=== PATIENT | male | born 1950 | race African-American/Black ===

== ENCOUNTER 2019-06-15 09:19 | Inpatient (IN) | payer MEDICARE ==
[~2019-06-15] VITALS: Ht 190.5 cm; Wt 100.7 kg
[~2019-06-15 09:19] MED LIST: DICL75TA5 MT; METO-396 MT; NIFE30TA83 PO; SERT20OR6 PO; SPIR25TA6 MT
[2019-06-15] MEDS ORDERED: SODIUM CHLORIDE 0.9% 1,000 ML IV ONE (09:26)
[2019-06-15 09:41] LABS: BG BASE EXCESS -13.7 mmol/L (-2.0-2.0); BG DEOXYHEMOGLOBIN 2.3 % (0.0-5.0); BG HCO3 ACT 10.4 mmol/L (22.0-26.0); BG METHEMOGLOBIN 0.1 % (0.0-1.5); BG OXYGEN SATURATION 97.7 % (92.0-98.5); BG OXYHEMOGLOBIN 97.6 % (94.0-97.0); BG PCO2 18.8 mmHg (35.0-45.0); BG PH 7.361 (7.350-7.450); BG PO2 115.7 mmHg (75.0-100.0); BG SAMPLE SITE RIGHT BRACHIAL; BG TOTAL HEMOGLOBIN 6.3 g/dL (12.0-18.0); BG VENT MODE ROOM AIR
[2019-06-15 10:09] LABS: INR 2.1; PROTHROMBIN TIME 20.9 sec (9.6-11.0)
[2019-06-15 10:15] LABS: CHLORIDE 103 mEq/L (98-107)
[2019-06-15] MEDS ORDERED: NOREPINEPHRINE 4 MG in DEXT 5% WATER 250 ML IV STA (10:15)
[2019-06-15] MEDS ORDERED: MIDAZOLAM HCL 50 MG in DEXTROSE 5% WATER 40 ML IV ONE ×2 (10:30→15:15)
[2019-06-15] MEDS ORDERED: ETOMIDATE 2MG/ML 10ML VIAL IV ONE (10:30)
[2019-06-15] MEDS ORDERED: FENTANYL CITRATE/PF 50MCG/ML 2ML VIAL IV ONE (10:30)
[2019-06-15] MEDS ORDERED: SUCCINYLCHOLINE CHLORIDE 200MG/10ML IV ONE (10:30)
[2019-06-15] MEDS ORDERED: FENTANYL CITRATE/PF 500 MCG in SODIUM CHLORIDE 0.9% 40 ML IV PRN ×2 (10:30→11:15)
[2019-06-15 10:36] LABS: BG BASE EXCESS -15.1 mmol/L (-2.0-2.0); BG CARBOXYHEMOGLOBIN 0.3 % (0.5-1.5); BG DEOXYHEMOGLOBIN 2.3 % (0.0-5.0); BG FRACTION INSPIRED OXYGEN 21; BG HCO3 ACT 9.2 mmol/L (22.0-26.0); BG METHEMOGLOBIN 0.2 % (0.0-1.5); BG OXYGEN SATURATION 97.7 % (92.0-98.5); BG OXYHEMOGLOBIN 97.2 % (94.0-97.0); BG PCO2 17.2 mmHg (35.0-45.0); BG PH 7.345 (7.350-7.450); BG PO2 117.8 mmHg (75.0-100.0); BG SAMPLE SITE RIGHT BRACHIAL; BG TOTAL HEMOGLOBIN 6.2 g/dL (12.0-18.0); BG VENT MODE ROOM AIR
[2019-06-15] MEDS: NOREPINEPHRINE 4MG/250ML PMX IV PRN ×2 (10:37→15:15)
[2019-06-15 10:47] LABS: BASOPHILS % 0.4 % (0.0-2.0); EOSINOPHILS % 0.2 % (0.0-5.0); LYMPHOCYTES % 9.2 % (20.0-50.0); MEAN CORPUSCULAR HEMOGLOBIN 32.2 pg (28.0-32.0); MEAN CORPUSCULAR VOLUME 96.4 fL (80.0-94.0); MEAN PLATELET VOLUME 11.6 fl (7.4-10.4); MONOCYTES % 11.6 % (2.0-8.0); NEUTROPHILS % 78.6 % (40.0-76.0); PLATELET 89 x1000/uL (130-400); RED BLOOD CELL COUNT 1.84 mill/uL (4.7-6.1); RED CELL DISTRIBUTION WIDTH 21.9 % (11.6-14.6)
[2019-06-15 10:49] LABS: HEMOGLOBIN. 5.9 g/dL (14.0-18.0)
[2019-06-15 10:50] LABS: HEMATOCRIT. 17.7 % (42.0-52.0)
[2019-06-15 11:14] LABS: CLARITY URINE TURBID (CLEAR); KETONES URINE 1+ (NEGATIVE); LEUKOCYTE ESTERASE URINE 2+ (NEGATIVE); NITRITE URINE POSITIVE (NEGATIVE); OCCULT BLOOD URINE 3+ (NEGATIVE); PROTEIN URINE 1+ (NEGATIVE); SPECIFIC GRAVITY URINE 1.036 (1.005-1.030)
[2019-06-15 11:23] LABS: COLOR URINE AMBER (YELLOW)
[2019-06-15] MEDS ORDERED: PIPERACILLIN/TAZ 3.375G PREMIX 50 ML IV ONE (11:30)
[2019-06-15] MEDS ORDERED: LACTULOSE 20G/30ML UDC PO ONE (11:30)
[2019-06-15] MEDS ORDERED: VANCOMYCIN 1 G PREMIX 200 ML IV ONE (11:30)
[2019-06-15] MEDS ORDERED: CEFEPIME 1,000 MG in DEXTROSE 5% WATER 50 ML IV SCH ×2 (13:15→13:45)
[2019-06-15] MEDS ORDERED: ONDANSETRON HCL 4MG/2ML INJ IV PRN (13:15)
[2019-06-15] MEDS: DEXT 5%/0.45% NACL 1000ML 1,000 ML IV SCH (14:27)
[2019-06-15] MEDS ORDERED: OCTREOTIDE 1,000 MCG in SODIUM CHLORIDE 0.9% 98 ML IV SCH (14:30)
[2019-06-15] MEDS ORDERED: NOREPINEPHRINE 4 MG in DEXT 5% WATER 250 ML IV PRN (15:00)
[2019-06-15] MEDS ORDERED: PANTOPRAZOLE SODIUM 40 MG/VIAL IV NR (15:47)
[2019-06-15] MEDS: LACTULOSE 20G/30ML UDC PO SCH ×2 (15:57→23:20)
[2019-06-15] MEDS: BLOOD SUGAR DIAGNOSTIC STRIP TEST SCH (17:02)
[2019-06-15] MEDS ORDERED: NOREPINEPHRINE 4MG/250ML PMX 250 ML IV PRN (18:00)
[2019-06-15 19:14] LABS: HEMOGLOBIN 6.9 g/dL (14.0-18.0)
[2019-06-15 19:15] LABS: HEMATOCRIT 20.5 % (42.0-52.0)
[2019-06-16] VITALS (74 sets, daily range): BP systolic 77–188; BP diastolic 28–97
[2019-06-16] MEDS ORDERED: MIDAZOLAM HCL 50 MG in DEXTROSE 5% WATER 40 ML IV PRN (01:30)
[2019-06-16] MEDS: NOREPINEPHRINE 4MG/250ML PMX IV PRN (02:55)
[2019-06-16] MEDS ORDERED: OCTREOTIDE 1,000 MCG in SODIUM CHLORIDE 0.9% 98 ML IV SCH (05:15)
[2019-06-16] MEDS ORDERED: RIFAXIMIN 550 MG TABLET PO NR (05:15)
[2019-06-16] MEDS ORDERED: DOPAMINE 400MG/250ML PREMIX 250 ML IV STA (06:04)
[2019-06-16] MEDS ORDERED: DOPAMINE 400MG/250ML PREMIX 250 ML IV ONE (06:09)
[2019-06-16 06:12] LABS: MEAN CORPUSCULAR HEMOGLOBIN 32.7 pg (28.0-32.0); MEAN CORPUSCULAR VOLUME 101.1 fL (80.0-94.0); MEAN PLATELET VOLUME 11.5 fl (7.4-10.4); PLATELET 99 x1000/uL (130-400); RED BLOOD CELL COUNT 1.68 mill/uL (4.7-6.1); RED CELL DISTRIBUTION WIDTH 21.2 % (11.6-14.6)
[2019-06-16 06:23] LABS: CHLORIDE 107 mEq/L (98-107)
[2019-06-16] MEDS ORDERED: DEXTROSE 50% WATER 50ML SYRINGE IV ONE ×2 (06:25→06:31)
[2019-06-16] MEDS ORDERED: EPINEPHRINE 0.1MG/ML (1:10,000) 10ML SYR ONE (06:28)
[2019-06-16 06:29] LABS: HEMOGLOBIN. 5.5 g/dL (14.0-18.0)
[2019-06-16] MEDS ORDERED: DEXTROSE 10% WATER 500 ML IV ONE (06:45)
[2019-06-16 06:47] LABS: PROTHROMBIN TIME 29.1 sec (9.6-11.0)
[2019-06-16] MEDS ORDERED: DEXTROSE 10% WATER 500 ML IV SCH (07:15)
[2019-06-16] MEDS ORDERED: PANTOPRAZOLE SODIUM 40 MG/VIAL IV SCH (09:00)
[2019-06-16] MEDS: NOREPINEPHRINE 32 MG in DEXT 5% WATER 468 ML IV PRN (09:55)
[2019-06-16] MEDS: RIFAXIMIN 550 MG TABLET PO SCH ×2 (10:00→21:00)
[2019-06-16] MEDS: DEXT 5%/0.45% NACL 1000ML 1,000 ML IV SCH (10:01)
[2019-06-16] MEDS: DOPAMINE 400MG/250ML PREMIX 250 ML IV PRN ×7 (10:10→21:52)
[2019-06-16] MEDS ORDERED: SODIUM BICARBONATE 8.4% 1 MEQ/ML 50ML SYR IV SCH (10:45)
[2019-06-16] MEDS: PANTOPRAZOLE SODIUM 40 MG/VIAL IV SCH ×2 (10:53→21:42)
[2019-06-16] MEDS: CEFEPIME 1,000 MG in DEXTROSE 5% WATER 50 ML IV SCH (11:01)
[2019-06-16] MEDS ORDERED: VANCOMYCIN 1 G PREMIX 200 ML IV SCH (12:00)
[2019-06-16] MEDS ORDERED: LACTULOSE 300 ML in WATER FOR IRRIGATION,STERILE 700 ML IR SCH (12:00)
[2019-06-16 12:28] LABS: NUCLEATED RED BLOOD CELLS 21 /100 WBC
[2019-06-16 12:29] LABS: PLATELET ESTIMATE DECREASED
[2019-06-16] MEDS: BLOOD SUGAR DIAGNOSTIC STRIP TEST SCH ×3 (12:50→21:37)
[2019-06-16] MEDS: LACTULOSE 20G/30ML UDC PO SCH ×3 (13:33→21:32)
[2019-06-16] MEDS ORDERED: CALCIUM GLUCONATE 1,000 MG in DEXT 5% WATER 90 ML IV SCH (15:00)
[2019-06-16] MEDS: IPRATROPIUM/ALBUTEROL 0.5-3(2.5)MG/3ML NEB HHN SCH ×2 (15:07→20:53)
[2019-06-16] MEDS ORDERED: OCTREOTIDE 1,000 MCG in SODIUM CHLORIDE 0.9% 98 ML IV PRN (16:00)
[2019-06-16 17:47] LABS: HEMATOCRIT 25.8 % (42.0-52.0); HEMOGLOBIN 8.8 g/dL (14.0-18.0)
[2019-06-16] MEDS: SODIUM BICARBONATE 150 MEQ in DEXT 10% WATER 850 ML IV SCH (18:23)
[2019-06-16 20:25] LABS: HEMATOCRIT. 21.3 % (42.0-52.0); HEMOGLOBIN. 7.2 g/dL (14.0-18.0); MEAN CORPUSCULAR HEMOGLOBIN 31.6 pg (28.0-32.0); MEAN CORPUSCULAR VOLUME 93.7 fL (80.0-94.0); MEAN PLATELET VOLUME 10.1 fl (7.4-10.4); PLATELET 74 x1000/uL (130-400); RED BLOOD CELL COUNT 2.27 mill/uL (4.7-6.1); RED CELL DISTRIBUTION WIDTH 17.7 % (11.6-14.6)
[2019-06-16] MEDS: PHYTONADIONE 10MG/ML AMP SUBCUT SCH (21:43)
[2019-06-16 22:10] LABS: NUCLEATED RED BLOOD CELLS 39 /100 WBC; PLATELET ESTIMATE DECREASED
[2019-06-17] VITALS (50 sets, daily range): BP systolic 60–114; BP diastolic 0–46
[2019-06-17] MEDS ORDERED: OCTREOTIDE 1,000 MCG in SODIUM CHLORIDE 0.9% 98 ML IV SCH ×2
[2019-06-17] MEDS: IPRATROPIUM/ALBUTEROL 0.5-3(2.5)MG/3ML NEB HHN SCH ×2 (00:18→08:50)
[2019-06-17] MEDS: DOPAMINE 400MG/250ML PREMIX 250 ML IV PRN ×2 (00:37→02:49)
[2019-06-17 00:39] LABS: HEMATOCRIT 19.2 % (42.0-52.0); HEMOGLOBIN 6.3 g/dL (14.0-18.0)
[2019-06-17] MEDS: VASOPRESSIN 10 UNIT in SODIUM CHLORIDE 0.9% 99.5 ML IV PRN ×3 (01:56→10:24)
[2019-06-17] MEDS: NOREPINEPHRINE 32 MG in DEXT 5% WATER 468 ML IV PRN (03:58)
[2019-06-17] MEDS: LACTULOSE 20G/30ML UDC PO SCH ×2 (05:00→13:32)
[2019-06-17] MEDS: DOPAMINE 800MG PREMIX (DOUBLE) 250 ML IV PRN ×3 (05:58→14:05)
[2019-06-17 06:29] LABS: MEAN CORPUSCULAR HEMOGLOBIN 31.7 pg (28.0-32.0); MEAN CORPUSCULAR VOLUME 95.6 fL (80.0-94.0); MEAN PLATELET VOLUME 10.4 fl (7.4-10.4); PLATELET 65 x1000/uL (130-400); RED BLOOD CELL COUNT 1.84 mill/uL (4.7-6.1); RED CELL DISTRIBUTION WIDTH 17.9 % (11.6-14.6)
[2019-06-17 06:48] LABS: HEMOGLOBIN. 5.8 g/dL (14.0-18.0)
[2019-06-17 06:49] LABS: HEMATOCRIT. 17.6 % (42.0-52.0)
[2019-06-17 07:02] LABS: INR > 10.0; PROTHROMBIN TIME > 100.0 sec (9.6-11.0)
[2019-06-17] MEDS: BLOOD SUGAR DIAGNOSTIC STRIP TEST SCH ×2 (08:37→13:24)
[2019-06-17] MEDS: PANTOPRAZOLE SODIUM 40 MG/VIAL IV SCH (08:38)
[2019-06-17] MEDS: PHYTONADIONE 10MG/ML AMP SUBCUT SCH (08:38)
[2019-06-17] MEDS ORDERED: FUROSEMIDE 100MG/10ML VIAL IVP SCH (09:00)
[2019-06-17] MEDS: RIFAXIMIN 550 MG TABLET PO SCH (09:00)
[2019-06-17 09:48] LABS: BG BASE EXCESS -22.3 mmol/L (-2.0-2.0); BG CARBOXYHEMOGLOBIN 0.3 % (0.5-1.5); BG DEOXYHEMOGLOBIN 5.8 % (0.0-5.0); BG FRACTION INSPIRED OXYGEN 60; BG HCO3 ACT 7.2 mmol/L (22.0-26.0); BG METHEMOGLOBIN 0.4 % (0.0-1.5); BG OXYGEN SATURATION 94.2 % (92.0-98.5); BG OXYHEMOGLOBIN 93.5 % (94.0-97.0); BG PCO2 30.7 mmHg (35.0-45.0); BG PH 6.989 (7.350-7.450); BG PO2 106.1 mmHg (75.0-100.0); BG SAMPLE SITE RIGHT BRACHIAL; BG TIDAL VOLUME(mL) 550 mL; BG TOTAL HEMOGLOBIN 6.1 g/dL (12.0-18.0); BG VENT MODE VENT - A/C; BG VENT RATE 16 set
[2019-06-17 10:40] LABS: NUCLEATED RED BLOOD CELLS 35 /100 WBC
[2019-06-17 10:41] LABS: PLATELET ESTIMATE DECREASED
[2019-06-17 10:56] LABS: BG BASE EXCESS -18.2 mmol/L (-2.0-2.0); BG CARBOXYHEMOGLOBIN 0.3 % (0.5-1.5); BG DEOXYHEMOGLOBIN 16.3 % (0.0-5.0); BG FRACTION INSPIRED OXYGEN 70; BG HCO3 ACT 9.4 mmol/L (22.0-26.0); BG METHEMOGLOBIN 1.1 % (0.0-1.5); BG OXYGEN SATURATION 83.5 % (92.0-98.5); BG OXYHEMOGLOBIN 82.3 % (94.0-97.0); BG PCO2 29.5 mmHg (35.0-45.0); BG PH 7.122 (7.350-7.450); BG PO2 63.6 mmHg (75.0-100.0); BG SAMPLE SITE RIGHT RADIAL; BG TIDAL VOLUME(mL) 550 mL; BG TOTAL HEMOGLOBIN 6.1 g/dL (12.0-18.0); BG VENT MODE VENT - A/C; BG VENT RATE 24 set
[2019-06-17] MEDS ORDERED: PHENYLEPHRINE 40 MG in DEXT 5% WATER 246 ML IV PRN (11:00)
[2019-06-17] MEDS: SODIUM BICARBONATE 150 MEQ in DEXT 10% WATER 850 ML IV SCH (11:00)
[2019-06-17] MEDS ORDERED: VANCOMYCIN 1250MG in DEXTROSE 5% WATER 250ML IV SCH (11:00)
[2019-06-17] MEDS: CEFEPIME 1,000 MG in DEXTROSE 5% WATER 50 ML IV SCH (11:28)
[2019-06-17] MEDS ORDERED: HYDROCORTISONE SOD SUCCINATE 100 MG/2 ML VIAL IV SCH (14:00)
== END 2019-06-17 18:28 | disposition expired | DRG 871 ==
LOC: ER 09:47 → CVICU 12:00 → EDBEDREQTM 12:16 → EDBEDREQ 12:16 → EDBEDREQSVC 12:16 → ENRESERV 06-16 07:48
PROVIDERS: ADMIT Internal Medicine; ATTEND Internal Medicine
PROC: 5A1945Z Respiratory Ventilation, 24-96 Consecutive Hours (ICD-10-PCS; principal; 2019-06-15)
PROC: 5A12012 Performance of Cardiac Output, Single, Manual (ICD-10-PCS; 2019-06-15)
PROC: 0BH17EZ Insertion of Endotracheal Airway into Trachea, Via Natural or Artificial Opening (ICD-10-PCS; 2019-06-15)
PROC: 06HY33Z Insertion of Infusion Device into Lower Vein, Percutaneous Approach (ICD-10-PCS; 2019-06-15)
PROC: 30233K1 Transfusion of Nonautologous Frozen Plasma into Peripheral Vein, Percutaneous Approach (ICD-10-PCS; 2019-06-15)
PROC: 30233N1 Transfusion of Nonautologous Red Blood Cells into Peripheral Vein, Percutaneous Approach (ICD-10-PCS; 2019-06-15)
DX: A41.9 Sepsis, unspecified organism (principal); E43 Unspecified severe protein-calorie malnutrition; K72.00 Acute and subacute hepatic failure without coma; N17.0 Acute kidney failure with tubular necrosis; N18.6 End stage renal disease; J96.00 Acute respiratory failure, unspecified whether with hypoxia or hypercapnia; R65.21 Severe sepsis with septic shock; J69.0 Pneumonitis due to inhalation of food and vomit; I21.4 Non-ST elevation (NSTEMI) myocardial infarction; G93.1 Anoxic brain damage, not elsewhere classified; N39.0 Urinary tract infection, site not specified; D68.4 Acquired coagulation factor deficiency; I13.11 Hypertensive heart and chronic kidney disease without heart failure, with stage 5 chronic kidney disease, or end stage renal disease; K76.6 Portal hypertension; E87.1 Hypo-osmolality and hyponatremia; I85.00 Esophageal varices without bleeding; R18.8 Other ascites; D62 Acute posthemorrhagic anemia; E87.2 Acidosis; K92.1 Melena; D53.9 Nutritional anemia, unspecified; D69.6 Thrombocytopenia, unspecified; E87.5 Hyperkalemia; K74.60 Unspecified cirrhosis of liver; E16.2 Hypoglycemia, unspecified; I46.9 Cardiac arrest, cause unspecified; R16.0 Hepatomegaly, not elsewhere classified; B19.20 Unspecified viral hepatitis C without hepatic coma; E87.70 Fluid overload, unspecified; R57.1 Hypovolemic shock; Z66 Do not resuscitate; Z85.05 Personal history of malignant neoplasm of liver; Z87.01 Personal history of pneumonia (recurrent); Z68.27 Body mass index [BMI] 27.0-27.9, adult
CPT/HCPCS: 36415; 36600; 71045; 74176; 80048; 80053; 80076; 80202; 81003; 82140; 82375; 82378; 82805; 82962; 83605; 84145; 84484; 85014; 85018; 85025; 86850; 86900; 86920; 86927; 87070; 87804; 93005; 96361; 96365; 96375; 99285; C9113; J0610; J0692; J1265; J1720; J1940; J2250; J2354; J2543; J3010; J3370; J3430; J3490; J7030; J7050; J7060; J7620; P9016; P9017